=== PATIENT | male | born 1935 | race Caucasian/White ===

== ENCOUNTER 2024-01-10 19:31 | Inpatient (IN) | payer MEDICARE, SELFPAY ==
[2024-01-10] VITALS (7 sets, daily range): BP systolic 106–179; BP diastolic 61–98; BMI 30.1; BMI 29.3
[2024-01-10 15:46] LABS: % Basophils 0.4 % (0-2); % Eosinophils 3.9 % (0-6); % Immature Granulocytes 0.4 % (0-0.5); % Lymphocytes 18.7 % (20.5-51.1); % Monocytes 7.7 % (1.7-9.3); % Neutrophils 68.9 % (42.2-75.2); Absolute Eosinophils 0.2 10^3/uL (0-0.7); Absolute Monocytes 0.4 10^3/uL (0.1-0.6); Absolute Neutrophils 3.8 10^3/uL (1.4-6.5); Hematocrit 29.4 % (39.0-52.0); Hemoglobin 9.1 g/dL (13.0-18.0); Mean Corpuscular Hgb 27.4 pg (27.0-31.0); Mean Corpuscular Volume 88.6 fL (80.0-94.0); Mean Platelet Volume 11.2 fL (7.4-10.4); Nucleated Red Blood Cells % 0 % (-); Platelet Count 225 10^3/uL (130-400); Red Blood Cell Count 3.32 10^6/uL (4.70-6.10); Red Cell Dist. Width 16.6 % (11.5-14.5); White Blood Cell Count 5.6 10^3/uL (4.8-10.8)
[2024-01-10 16:01] LABS: ALT (SGPT) < 10 U/L (0-50); AST (SGOT) 17 U/L (17-59); Albumin 3.9 g/dl (3.5-5.0); Alkaline Phosphatase 86 U/L (38-126); Blood Urea Nitrogen 33 mg/dl (9-20); Calcium 7.8 mg/dl (8.4-10.2); Carbon Dioxide 28 mmol/L (22-30); Chloride 107 mmol/L (98-107); Glucose 108 mg/dl (70-99); Potassium 4.7 mmol/L (3.5-5.1); Sodium 143 mmol/L (135-145); Total Bilirubin 0.9 mg/dl (0.2-1.3); Total Protein 6.9 g/dl (6.3-8.2)
--- NOTE | 2024-01-10 16:29 | EDRN ---
No change in chief complaint. Pts anxious and states 'the doctor told me to chandler him here and we have been waiting too long'. Called CT scan and pt is being taken to CT now.
--- NOTE | 2024-01-10 17:35 | ED.GENMED ---
History of Present Illness
<EVA Rios Jr. Last Filed: 01/10/24 18:04>
General
Chief Complaint: Eye Problems
Source: patient
Exam Limitations: none
Time Seen by Provider: 01/10/24 17:04
Nursing documentation reviewed up to this point in time: agreed with
History of Present Illness
History of Present Illness:
88-year-old male with past medical history of hypertension hyperlipidemia, GERD, hypothyroidism presenting to the emergency department today with concerns of right-sided field cut. He was sent over by the eye doctor with concerns for stroke. He
claims his symptoms improved today denies any additional symptoms otherwise. No history of stroke.
Review of Systems
<EVA Rios Jr. Last Filed: 01/10/24 18:04>
Review of Systems
Allergies reviewed?: Yes
All Other Systems: ROS reviewed and negative except as documented in HPI and ROS
Phy Exam
<EVA Rios Jr. Last Filed: 01/10/24 18:04>
Physical Exam
Physical Exam:
GENERAL: Alert , in no apparent distress
EYE: pupils equal and reactive
NECK: Supple, no significant adenopathy.
ENT: o/p clr, mmm.
CARDIAC: Regular rate and rhythm .
LUNGS: Clear breath sounds bilaterally, no acute respiratory distress, no wheezes/rales/rhonchi
ABDOMEN: Soft, without focal tenderness, no r/g, no cvat
NEUROLOGICAL: Alert and oriented, no focal neuro deficits 5 out of 5 upper and lower extremity strength normal sensation with palpating bilaterally normal finger-nose and [id number] no pronator drift
SKIN: Warm and dry, skin intact.
MUSCULOSKELETAL: No edema, well perfused.
PSYCH: Normal and appropriate interaction.
Course
<Filippo Lala Jr., PA-C - Last Filed: 01/10/24 18:04>
Orders/Labs/Results
Orders:
Orders
01/10/24 15:08
CT Head W/o Iv Contrast Urgent
Comment:
Reason For Exam: field cuts on the R
01/10/24 15:23
Complete Blood Count/With Diff Urgent
Comprehensive Metabolic Panel Urgent
01/10/24 17:20
CT Head & Neck Angio W/wo IV Urgent
Comment:
Reason For Exam: right posterior neck pain, occipital stroke on non
01/10/24 17:21
EKG [Electrocardiogram (*1)] Urgent
Reason for Study: TIA/Stroke
EKG- Treatment ONCE
01/10/24 18:00
Aspirin 325 mg PO NOW STA
Abnormal Lab Results
01/10/24
15:23
RBC 3.32 L 10^6/uL
(4.70-6.10)
Hgb 9.1 L g/dL
(13.0-18.0)
Hct 29.4 L %
(39.0-52.0)
MCHC 31.0 L g/dL
(33.0-37.0)
RDW 16.6 H %
(11.5-14.5)
MPV 11.2 H fL
(7.4-10.4)
Absolute Lymphs (auto) 1.0 L 10^3/uL
(1.2-3.4)
Lymphocytes % 18.7 L %
(20.5-51.1)
BUN 33 H mg/dl
(9-20)
Creatinine 2.1 H mg/dL
(0.7-1.3)
Glucose 108 H mg/dl
(70-99)
Calcium 7.8 L mg/dl
(8.4-10.2)
01/10/24 15:23
01/10/24 15:23
Vital Signs
Initial and Last Documented VS:
Initial Vital Signs
Temp Pulse Resp BP Pulse Ox
98.3 F 88 20 106/77 96
01/10/24 14:58 01/10/24 14:58 01/10/24 14:58 01/10/24 14:58 01/10/24 14:58
Last Documented Vital Signs
Temp Pulse Resp BP Pulse Ox
98.3 F 74 16 110/74 99
01/10/24 14:58 01/10/24 16:28 01/10/24 16:28 01/10/24 16:28 01/10/24 16:28
<Nahun Hansen, DO - Last Filed: 01/10/24 17:36>
Orders/Labs/Results
Orders:
Orders
01/10/24 15:08
CT Head W/o Iv Contrast Urgent
Comment:
Reason For Exam: field cuts on the R
01/10/24 15:23
Complete Blood Count/With Diff Urgent
Comprehensive Metabolic Panel Urgent
01/10/24 17:20
CT Head & Neck Angio W/wo IV Urgent
Comment:
Reason For Exam: right posterior neck pain, occipital stroke on non
01/10/24 17:21
EKG [Electrocardiogram (*1)] Urgent
Reason for Study: TIA/Stroke
EKG- Treatment ONCE
01/10/24 18:00
Aspirin 325 mg PO NOW STA
Abnormal Lab Results
01/10/24
15:23
RBC 3.32 L 10^6/uL
(4.70-6.10)
Hgb 9.1 L g/dL
(13.0-18.0)
Hct 29.4 L %
(39.0-52.0)
MCHC 31.0 L g/dL
(33.0-37.0)
RDW 16.6 H %
(11.5-14.5)
MPV 11.2 H fL
(7.4-10.4)
Absolute Lymphs (auto) 1.0 L 10^3/uL
(1.2-3.4)
Lymphocytes % 18.7 L %
(20.5-51.1)
BUN 33 H mg/dl
(9-20)
Creatinine 2.1 H mg/dL
(0.7-1.3)
Glucose 108 H mg/dl
(70-99)
Calcium 7.8 L mg/dl
(8.4-10.2)
01/10/24 15:23
01/10/24 15:23
Vital Signs
Initial and Last Documented VS:
Initial Vital Signs
Temp Pulse Resp BP Pulse Ox
98.3 F 88 20 106/77 96
01/10/24 14:58 01/10/24 14:58 01/10/24 14:58 01/10/24 14:58 01/10/24 14:58
Last Documented Vital Signs
Temp Pulse Resp BP Pulse Ox
98.3 F 74 16 110/74 99
01/10/24 14:58 01/10/24 16:28 01/10/24 16:28 01/10/24 16:28 01/10/24 16:28
<Filippo Lala Jr., PA-C - Last Filed: 01/10/24 18:04>
MDM/Problems Addressed
MDM/Problems Addressed:
88-year-old male presenting to the emergency department today with concerns of right-sided visual field cut over the past 3 days. He was seen by his eye doctor today who sent him to the ER. Upon arrival vital signs are normal labs apparently at
baseline does have a history of CKD self-reported creat 2 point BUN 33 also claims to have some degree of anemia currently with hemoglobin 9.1. No old labs here for comparison. Head CT showing occipital stroke consistent with patient's described
symptoms. Initially CT angiogram was ordered concerning was complaining of some neck discomfort over the past 2 weeks. His creatinine is elevated concerning this case was discussed with neurology who recommended MRI MRI. Otherwise patient will be
admitted and was given a dose of aspirin here.
<Filippo Lala Jr., PA-C - Last Filed: 01/10/24 18:04>
*Critical Care Note
Total Time (30-74mins, 75-104mins- exclusive of procedures): Not Applicable
ED Attending Note
<Filippo Lala Jr., PA-C - Last Filed: 01/10/24 18:04>
-
Portions of this chart may have been created with voice recognition software.� Occasional wrong word or��sound alike� substitutions may have occurred due to the inherent limitations of voice recognition software.
<Nahnu Hansen DO - Last Filed: 01/10/24 17:36>
ED Attending Note
Patient seen and examined by attending physician: Yes
I performed the substantive portion of visit, reviewed & personally made and approve the management plan that is documented in note by myself or ANALI.: Yes
ED Attending Note:
Seen with PA examined independently ophthalmology referral for visual field cut, CT confirms occipital stroke patient has had some neck pain numerous visits to the chiropractor preceding his symptoms creatinine noted we will hold off on urgent CT
angiogram at this point, will require admission specialty consultation etc.
Discharge Plan
Departure
Patient Disposition: Admit
Date of Disposition: 01/10/24
Time of Disposition: 18:03
Admit to: Telemetry
Admit to doctor: Сергей
Presentation/result/management discussed w/ accepting MD/DO: Hospitalist
Patient with high blood pressure during this ER visit?: No
Condition: Good
Covid-19: Not Applicable
Discharge Problem:
Occipital stroke
Prescriptions:
No Action
cetirizine [Zyrtec] 10 mg Tablet
10 mg PO DAILY
Referrals:
Constance Carrion CRNP [Family Provider] -
Interventions
Interventions:
*Risk Screen - Suicide Last Done: 01/10/24 14:58
*General Assessment Last Done: 01/10/24 14:58
*Neglect/Abuse Screening Last Done: 01/10/24 14:58
*ED COVID-19 Vaccine History Last Done: 01/10/24 17:01
Discharge Date and Time
Print Language: WELSH
--- NOTE | 2024-01-10 18:17 | HPS.HSE ---
Family Physician
-
Family Physician: Constance Carrion
Chief Complaint
-
Visual field deficit
History of Present Illness
HPI: 88-year-old male with past medical history of hypertension, hyperlipidemia, GERD, hypothyroidism; p/w right-sided visual field cut. He was sent over by the eye doctor with concern for stroke.
His visual field defect has resolved.
He denies to any other neurologic deficit. No weakness, sensory loss, paresthesia, slurred speech etc. He denies other symptoms.
Medical History
Past Medical History
Past Medical History: Reports Other
Additional Past Medical History:
hypertension
hyperlipidemia
GERD
hypothyroidism
Past Surgical History: Reports Other
Additional Past Surgical History:
Thyroidectomy
skin cancer status post excision
Social History
Tobacco: Non-smoker
Alcohol: None
Living: With Family
Family History
Family History: Not pertinent
Allergies / Home Medications
Allergies reflects when Allergies were last updated in [facility].
Home Medications with original date entered in [facility]
Allergy/Medication List:
Allergies
Allergy/AdvReac Type Severity Reaction Status Date / Time
No Known Allergies Allergy Verified 01/10/24 15:02
Home Medications
acetaminophen 500 mg tablet (Tylenol Extra Strength) 500 - 1,000 mg PO QIDPRN PRN mild pain 01/10/24
amlodipine 10 mg tablet 10 mg PO DAILY 01/10/24
carvedilol 12.5 mg tablet 12.5 mg PO BID 01/10/24
cetirizine 10 mg tablet (Zyrtec) 10 mg PO DAILYPRN PRN allergies 01/10/24
levothyroxine 137 mcg tablet 137 mcg PO NOON 01/10/24
losartan 100 mg tablet 100 mg PO DAILY 01/10/24
omeprazole magnesium 20 mg tablet,delayed release (Prilosec OTC) 20 mg PO BID 01/10/24
simvastatin 40 mg tablet 40 mg PO DAILY 01/10/24
Review of Systems
-
Neurological: Reports See HPI
Physical Exam
Vital Signs
Vital Signs
Temp Pulse Resp BP Pulse Ox
36.8 C 74 16 110/74 99
01/10/24 14:58 01/10/24 16:28 01/10/24 16:28 01/10/24 16:28 01/10/24 16:28
Physical Exam
General: Well Developed, Well Nourished, No Apparent Distress, Comfortable and Conversant
HEENT: NormoCephalic, Moist mucous membranes and Atraumatic
Respiratory: Clear and Non Labored Respirations; No Accessory Resp Muscle Use
Cardiac: S1/S2 and Regular Rhythm; No Murmur or Rub
GI: Soft, Non Tender, Non Distended and Normal Bowel Sounds; No Organomegaly
Rectal: Deferred by Provider
Musculoskeletal: No Clubbing, No Cyanosis and No Edema
Skin: No Rash
Neuro: Awake, Alert and Nonfocal/grossly intact
Psych: Calm and Intact Judgment/Insight
Laboratory Results
-
01/10/24 15:23
01/10/24 15:23
Laboratory Results
Total Bilirubin 0.9 mg/dl (0.2-1.3) 01/10/24 15:23
AST 17 U/L (17-59) 01/10/24 15:23
ALT < 10 U/L (0-50) 01/10/24 15:23
Alkaline Phosphatase 86 U/L (38-126) 01/10/24 15:23
Data Reviewed
-
CT Scan: Report Reviewed by me
Lab Data: Labs Reviewed by me
Impression/Plan
-
HPI: 88-year-old male with past medical history of hypertension, hyperlipidemia, GERD, hypothyroidism; p/w right-sided visual field cut. He was sent over by the eye doctor with concern for stroke.
His visual field defect has resolved.
He denies to any other neurologic deficit. No weakness, sensory loss, paresthesia, slurred speech etc. He denies other symptoms.
A/P:
# Right-sided visual field cut, due to occipital stroke
CT head on admission noted left occipital lobe infarct, likely subacute.
Follow CT head and neck angio
Check MRI brain
Check lipid panel, A1c
Status post full dose aspirin in ER, continue with dual antiplatelet therapy with aspirin and Plavix neuroconsult
# Hypertension
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
# hyperlipidemia
statin
# GERD
PPI
# hypothyroidism
# History of thyroidectomy
Continue prior to admission Synthroid
DVT prophylaxis: SCD for now
Full code
[2024-01-10] MEDS: ASPIRIN 325 MG PO (18:35)
[2024-01-10 19:05] LABS: HDL Cholesterol 50 mg/dl; LDL Cholesterol, Calculated 97 mg/dl; Total Cholesterol 159 mg/dl (50-199); Triglyceride 64 mg/dl (10-149); Very Low Density Lipoprotein 12 mg/dl (0-30)
--- NOTE | 2024-01-10 20:30 | PTCARENOTE ---
Pt transferred from ED. Pt ambulated into room with assistance. Pt AAOX3, NIH 0, visual problems resolved. Pt oriented to unit, call barriga within reach, be in lowest position. Will continue with current plan.
[2024-01-10] MEDS: COREG 12.5 MG PO (21:57)
[2024-01-10] MEDS: PROTONIX 40 MG PO (21:57)
[2024-01-11 03:19] VITALS: BP 155/75
[2024-01-11 07:00] VITALS: BP 174/70
[2024-01-11 07:53] LABS: Hematocrit 26.9 % (39.0-52.0); Hemoglobin 8.5 g/dL (13.0-18.0); Mean Corp Hgb Conc. 31.6 g/dL (33.0-37.0); Mean Corpuscular Hgb 28.1 pg (27.0-31.0); Mean Corpuscular Volume 89.1 fL (80.0-94.0); Platelet Count 194 10^3/uL (130-400); Red Blood Cell Count 3.02 10^6/uL (4.70-6.10); Red Cell Dist. Width 16.6 % (11.5-14.5); White Blood Cell Count 4.3 10^3/uL (4.8-10.8)
[2024-01-11 08:07] LABS: Blood Urea Nitrogen 31 mg/dl (9-20); Carbon Dioxide 27 mmol/L (22-30); Chloride 108 mmol/L (98-107); Estimated Creatinine Clearance 30 ml/min; Glucose 91 mg/dl (70-99); HDL Cholesterol 44 mg/dl; LDL Cholesterol, Calculated 86 mg/dl; Potassium 4.1 mmol/L (3.5-5.1); Sodium 145 mmol/L (135-145); Total Cholesterol 143 mg/dl (50-199); Triglyceride 66 mg/dl (10-149); Very Low Density Lipoprotein 13 mg/dl (0-30); eGFR 35.98
--- NOTE | 2024-01-11 08:56 | W.PN.HOSP.TC ---
Today's Communication/Plan
-
see A/P
Assessment / Plan
Assessment / Plan
HPI: 88-year-old male with past medical history of hypertension, hyperlipidemia, GERD, hypothyroidism; p/w right-sided visual field cut. He was sent over by the eye doctor with concern for stroke.
His visual field defect has resolved.
He denies to any other neurologic deficit. No weakness, sensory loss, paresthesia, slurred speech etc. He denies other symptoms.
A/P:
# Right-sided visual field cut, due to occipital stroke
CT head on admission noted left occipital lobe infarct, likely subacute.
MRI brain confirmed Acute nonhemorrhagic infarct in the territory of the left posterior cerebral artery
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 Recc outpt Neurosurgery eval - pt informed
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
Check echo
LDL 86, replace ROOM COOLER INSTALLER Simvastatin with Lipitor 40 mg
A1c 5.0%
Status post full dose aspirin in ER, continue with dual antiplatelet therapy with aspirin and Plavix
Neuro consult
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
# Hypertension
cont ROOM COOLER INSTALLER Norvasc, Losartan
Increase ROOM COOLER INSTALLER Coreg from 12.5 BID to 25 mg BID for better BP control
# hyperlipidemia
statin as above
# GERD
PPI
# hypothyroidism
# History of thyroidectomy
Continue prior to admission Synthroid
DVT prophylaxis: SCD for now
Full code
Anticipated Discharge: Within 24 hours
Subjective/Interval History
-
Date of Service: January 11, 2024
Objective Data
-
Labs:
Laboratory Results
01/11/24 01/11/24
07:07 07:34
WBC 4.3 L Cancelled
Hgb 8.5 L Cancelled
Hct 26.9 L Cancelled
Plt Count 194 Cancelled
Sodium 145 Cancelled
Potassium 4.1 Cancelled
Chloride 108 H Cancelled
Carbon Dioxide 27 Cancelled
BUN 31 H Cancelled
Creatinine 1.8 H Cancelled
Glucose 91 Cancelled
Calcium 8.0 L Cancelled
Vital Signs:
Vital Signs
Temp Pulse Resp BP Pulse Ox
36.4 C 86 16 174/70 98
01/11/24 07:00 01/11/24 07:00 01/11/24 07:00 01/11/24 07:00 01/11/24 07:00
I&O
01/10/24 01/11/24 01/12/24
06:59 06:59 06:59
Intake Total 240 / 240
Balance 240 / 240
Review of Systems
-
All other systems: Reviewed and negative
Physical Exam
-
General: Well Developed, Well Nourished, No Apparent Distress, Comfortable and Conversant; Negative Respiratory Distress
HEENT: Normocephalic, Atraumatic, Nose Appears Normal and Ears Appear Normal; Negative Oxygen
Respiratory: Clear to Auscultation and Non Labored Respirations; Negative Accessory Resp Muscle Use
Cardiac: Regular Rhythm and S1/S2
GI: Soft, Nontender, Nondistended and Normal Bowel Sounds
Skin: Warm and Dry
Neuro: Awake, Alert, Oriented and AO x 3
Psych: Calm and Intact Judgement/Insight
Data Reviewed
-
CT Scan: Report Reviewed by me
MRI: Report Reviewed by me and Discussed with Patient
Labs: Labs Reviewed by me
[2024-01-11] MEDS: PROTONIX 40 MG PO (10:35)
[2024-01-11] MEDS: LOW STRENGTH ASPIRIN 81 MG PO (10:35)
[2024-01-11] MEDS: PLAVIX 75 MG PO (10:36)
[2024-01-11] MEDS: LIPITOR 40 MG PO (10:36)
[2024-01-11] MEDS: COREG 25 MG PO (10:36)
[2024-01-11] MEDS: COZAAR 100 MG PO (10:38)
[2024-01-11] MEDS: NORVASC 10 MG PO (10:38)
[2024-01-11 10:50] VITALS: BP 177/70
[2024-01-11] MEDS: COREG PO (10:50)
[2024-01-11 11:00] VITALS: BP 177/80
[2024-01-11 11:39] VITALS: BP 177/80; PULSE 85; O2SAT 96
[2024-01-11] MEDS: SYNTHROID 137 MCG PO (11:54)
--- NOTE | 2024-01-11 13:44 | PTOTSP ---
HIGHWAY PAINTER HELPER Evaluation
No dysarthria.
Quick Aphasia Battery Form 1 overall score is 9.42 - WFL.
Mild word finding difficulty noted with confrontational naming (i.e., 'slide', then corrected to 'moving stairs' with semantic cue, then 'escalator' for escalator picture; 'starfish' for 'octopus' corrected with semantic cues). Cannot r/o if this
was due to low vision at baseline vs a visual agnosia vs age related word finding difficulty. Of note, no word finding difficulty noted with conversation level speech. Auditory comprehension WFL.
Therapy with an HIGHWAY PAINTER HELPER is not warranted at the acute care level at this time. Discussed outpatient resources as needed.
--- NOTE | 2024-01-11 14:10 | W.DCSUMMARY ---
Discharge Summary
Discharge Data
Date of Admission: 01/10/24
Date of Discharge: 01/11/24
-
Pending Results: No
Hospital Course
Principal Diagnosis:
Right-sided visual field cut, due to occipital stroke
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
Chronic Diagnoses:�
Presumed chronic kidney disease stage 3
Hypertension, on Norvasc, Losartan, and prior to admission Coreg increased from 12.5 twice daily to 25 mg twice daily
Hyperlipidemia
Gastroesophageal reflux disease
Hypothyroidism
History of thyroidectomy
Consultations:�
Neurology
Procedures:�
None
Clinical course:�
This is a 88-year-old male with past medical history as stated above, who presented with right-sided visual field cut. He was sent to the ED by his eye doctor with concern for stroke.
His visual field defect has resolved.
He denies to any other neurologic deficit.
Problem 1:
Right-sided visual field cut, due to occipital stroke.
His CT head and MRI brain noted left occipital lobe infarct.
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 He has been informed to follow-up with neurosurgery outpatient for this.
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
His LDL was at 86, and his WHARF LABOURER Simvastatin was replaced with Lipitor 40 mg which he can continue to take going forward.
His A1c was within normal limit at 5.0%.
He received full dose aspirin from admission, and he can continue with dual antiplatelet therapy aspirin and Plavix for 21 days total, then aspirin alone after that.
As for the rest of his medical problems, they were stable during his hospital stay.
Discharge Plan
-
Patient Disposition: Home with Home Care
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
Condition: Good
Diet: As tolerated, Low Fat, Low Cholesterol and Low Sodium
Activity: As tolerated
Driving Restrictions: Not until seen by your Dr
Activity Restrictions/Additional Instructions:
Follow up with your PCP for better BP control.
Follow-up with neurosurgery for your 4.6 x 3.9 mm saccular aneurysm in the left internal carotid artery
Referrals:
Constance Carrion CRNP [Family Provider] - in less than 1 week
Additional Discharge Medication Instructions: take Lipitor [address] of your previous simvastatin
Continue Aspirin and Plavix for 20 days, then ASA along after that
Your Coreg dose was increased from 12.5 mg twice daily to 25 mg twice daily.
Prescriptions:
New
carvedilol 25 mg Tablet
25 mg PO BID Qty: 60 0RF
aspirin 81 mg Tablet,Chewable
81 mg PO DAILY Qty: 30 0RF
clopidogrel 75 mg Tablet
75 mg PO DAILY Qty: 20 0RF
atorvastatin 40 mg Tablet
40 mg PO DAILY Qty: 30 0RF
Continued
cetirizine [Zyrtec] 10 mg Tablet
10 mg PO DAILYPRN PRN (Reason: allergies)
levothyroxine 137 mcg Tablet
137 mcg PO NOON
acetaminophen [Tylenol Extra Strength] 500 mg Tablet
500 - 1,000 mg PO QIDPRN PRN (Reason: mild pain)
amlodipine 10 mg Tablet
10 mg PO DAILY
losartan 100 mg Tablet
100 mg PO DAILY
omeprazole magnesium [Prilosec OTC] 20 mg Tablet,Delayed Release (Dr/Ec)
20 mg PO BID
Discontinued
carvedilol 12.5 mg Tablet
12.5 mg PO BID
simvastatin 40 mg Tablet
40 mg PO DAILY
Discharge Orders:
Discharge Patient (As Directed); Ordered 01/11/24
Ordered By: Lauren Youssef
Discharge Date and Time
Discharge Date/Time: 01/11/24 15:18
Print Language: BRITISH
--- NOTE | 2024-01-11 14:26 | CM ---
Patient seen with , initial assessment completed. Patient resides with his in a single story home, one step enter. Patient does not use any device to ambulate, does have a walker, cane, and wheelchair at home if needed. Patient denies VN or
SNF history. Patient PCP Constance Carrion, pharmacy [facility], also utilizes [facility]. Patient denies food insecurities at home. Patient inquiring about discharge. CM will continue to follow for all discharge planning needs.
Plan; home no needs.
[2024-01-11 15:00] VITALS: BP 135/51
--- NOTE | 2024-01-11 15:26 | CON.NEURO4 ---
Consultation - Neurology 4
-
CONSULTING PHYSICIAN: Torres Diaz MD(Neurology)
REFERRING PHYSICIAN: Lauren Fung(hospitalist)
DICTATED BY: Torres Diaz MD
DATE/TIME OF REQUEST:
DATE/TIME OF CONSULTATION: 1500
Reason for Consultation: Loss of vision
History of Present Illness:
This is a 88 year old right handed male who was admitted to the hospital with chief complaint of blurred vision. He gives a past medical history of hypertension, hyperlipidemia, GERD, hypothyroidism who had been in his usual state of health till
Monday when he started to experience loss blurring of vision. He was seen by his readers' advisory service librarian and was referred to the emergency room for stroke evaluation. Following admission he claims that his vision is improved however he still continues to
have visual neglect on the right. He denies any headaches dizziness. No focal weakness or numbness of face or arms or legs. No difficulty speaking swallowing incoordination or gait impairment. Not on aspirin or Plavix
Past Medical History: Hypertension hypothyroidism GERD
Surgical History: Thyroidectomy skin biopsy
Family History: Noncontributory
Social History: Lives at home with his does not smoke use alcohol
Allergies: No known drug allergies
Home Medications: Norvasc 10 mg carvedilol 12.5 mg losartan 100 mg simvastatin 40 mg Prilosec 20 mg Synthroid
Review of Symptoms:
Patient denies any fever, headache, chest pain, shortness of breath, GI or symptoms.
�Per the HPI.�All systems are reviewed negative except above.
�-
Vital Signs: Temp 36.4 C Pulse67 Resp16 BP135/51 Pulse Ox98
Physical Exam:
The patient is afebrile, heart sounds S1 and S2 are (regular / irregular), and chest is clear to auscultation bilaterally.
NIH Stroke Scale (if applicable):
I performed the NIH stroke scale on the patient. The patient scored (2 ) points on the NIH stroke scale assessment
Neurologic Examination:
The patient is awake, alert and oriented x 3. (He/She) is able to follow commands and answer questions appropriately. There is no aphasia or dysarthria. On cranial nerve assessment, pupils are 3 mm bilateral, round and reactive to light and
accommodation. Visual cross are constricted secondary to right homonymous hemianopsia. Extraocular movements are intact. Facial sensations are intact and bilaterally symmetrical, there is no facial asymmetry. Hearing is intact bilaterally to
normal conversation volume. Tongue palate and uvula are midline. Sternocleidomastoid strengths are full bilaterally. Motor strengths are 5/5 bilateral upper and lower extremities on medical research Pala scale. There is no drift or involuntary
movement noted. Deep tendon reflexes are 2+ bilateral upper and lower extremities and Babinski is absent bilaterally. Sensations of pain, touch, temperature and vibration are intact and bilaterally symmetrical. There was no extinction noted on
double simultaneous stimulation. Coordination is intact by finger to nose bilaterally.
Lab Results:
Neuro Imaging: CT/MRI of the head shows left ROUTE AGENT infarction involving the left occipital lobe
Impression:
Mr. 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
Recommendations:
1. Aspirin 81 mg
2. Plavix 75 mg for 3 weeks
3. Follow-up with ophthalmology for a field evaluation in 1 to 2 months
4. Zocor 40 mg daily
5. Strict blood pressure control
6. ENT evaluation for sinusitis
Discussed patient care with: Hospitalist
Vital Signs and Labs
-
Vital Signs and Labs:
Vital Signs
Temp Pulse Resp BP Pulse Ox
36.4 C 67 16 135/51 98
01/11/24 15:00 01/11/24 15:00 01/11/24 15:00 01/11/24 15:00 01/11/24 15:00
Lab Results
01/11/24 07:34
01/11/24 07:34
Sodium Cancelled 01/11/24 07:34
Potassium Cancelled 01/11/24 07:34
BUN Cancelled 01/11/24 07:34
Glucose Cancelled 01/11/24 07:34
Calcium Cancelled 01/11/24 07:34
LDL Cholesterol, Calc 86 mg/dl 01/11/24 07:07
== END 2024-01-11 15:18 | disposition home or self-care (01) | DRG 66 ==
LOC: 4 WEST ACU 19:31
PROVIDERS: ADMITTING PHYSICIAN Internal Medicine; CONSULT PHYSICIAN Psychiatry & Neurology Neurology; EMERGENCY PHYSICIAN Emergency Medicine; FAMILY PHYSICIAN Nurse Practitioner
DX: I63.9 Cerebral infarction, unspecified (principal); I10 Essential (primary) hypertension; E89.0 Postprocedural hypothyroidism; H53.461 Homonymous bilateral field defects, right side; E78.5 Hyperlipidemia, unspecified; R29.702 NIHSS score 2; K21.9 Gastro-esophageal reflux disease without esophagitis; Z79.890 Hormone replacement therapy; Z79.899 Other long term (current) drug therapy; Z90.89 Acquired absence of other organs; Z85.828 Personal history of other malignant neoplasm of skin
CPT/HCPCS: 70450; 70544; 70548; 70551; 80048; 80053; 80061; 83036; 85025; 85027; 92523; 93005; 93306; 97161; 97166; 99285; A9585